=== PATIENT | female | born 1990 | race Caucasian/White ===

== ENCOUNTER 2017-01-26 23:10 | Observation (INO) | payer OTHER ==
[~2017-01-26] VITALS: Ht 167.6 cm; Wt 96.6 kg
[~2017-01-26 23:10] MED LIST: BACL10TA PO; BUTA1CAP39 PO; CEPH-512 PO; IBUP800T28 PO; MELO-259 PO; RANI75TA30 PO; ROB500 PO
[2017-01-26 23:13] VITALS: BP 124/79; PULSE 88; RESP 22; O2SAT 98
--- NOTE | 2017-01-27 00:02 | ED.REPORT ---
HPI-GI Bleed Date of Service Jan 27, 2017 ED Provider: Mart Hathaway MD A 26 year old 8-9 week female with a history of miscarriages, presents to the ED complaining of hematemesis onset last night and a severe headache onset this morning. She reports vomiting at least 3 times today, vomit being darker than last night, and intermittently without blood. She reports being unable to keep any liquid or solid food down The patient reports having vomit without blood for the last week, with vomiting occurring throughout the entirety of each day. She is not sure if she has had a fever recently, but does report hot flashes and chills. She denies any diarrhea. This is her 6th and has had an in the past. She currently takes vitamin B6 to treat her nausea and sleeping pills prescribed by her doctor. She has not taken any ibuprofen to treat current symptoms. The patient has had two knee surgeries, a cholecystectomy, has had her wisdom teeth removed, and had to get stitches in her 3rd after the delivery of her daughter. She does not smoke cigarettes but does smoke marijuana. She has not consumed alcohol since she has been . . Nursing Notes Stated Complaint: VOMITING BLOOD/ Chief Complaint: Female Abdominal Pain Nursing Notes Reviewed: Yes (Jimdo, Talent Flush not reconciled) Allergies: Coded Allergies: No Known Allergies (Verified , 01/26/17) Scheduled Baclofen (Baclofen) 10 Mg Tablet 10 MG PO QID Cephalexin (Keflex) 500 Mg Capsule 500 MG PO QID Meloxicam (Meloxicam) 7.5 Mg Tablet 7.5 MG PO DAILY Methocarbamol (Methocarbamol) 500 Mg Tablet 1,000 MG PO TID Ranitidine HCl (Acid Rivet Spinner) 75 Mg Tablet 75 MG PO DAILY Scheduled PRN Butalbital/Acetamin/Caff 50-300-40 mg (Fioricet 50-300-40 mg) 1 Each Capsule 1 CAPSULE PO Q4H PRN PRN Headache Ibuprofen (Ibuprofen) 800 Mg Tablet 800 MG PO TID PRN PRN For Pain Ondansetron ODT (Ondansetron ODT) 8 Mg Tab.rapdis 8 MG PO Q4H PRN PRN For Nausea Promethazine (Promethazine) 25 Mg Tablet 25 MG PO Q4H PRN PRN For Nausea General Time Seen by Provider: 00:01 Chief Complaint Chief Complaint: Other (Hematemesis) Hx Obtained From: Patient, Spouse Arrived By: Walk-in Onset Occurred: Yesterday (last night) Symptom Duration: Intermittent Recent Healthcare: Recent doctor visit Similar Sx Previous: No Past Medical History Past Medical History Miscarriages Reports: Migraines Past Surgical History knee surgery x2 Reports: Cholecystectomy Family History Noncontributory Smoking History Former Smoker Social History Alcohol Use: "Social" (Has not consumed alcohol since beginning of .) Drug Use: THC Other Social History: Good social support, Local resident Ambulatory Status Independent Review of Systems Review of Systems Note: Hematemesis. Cannot hold fluid or solid food down. Hot flashes. Constitutional: Reports: Chills GI: Reports: Nausea, Vomiting, Denies: Diarrhea Neurologic: Reports: Headache Complete sys rev & neg: except as marked. Physical Exam Initial Vital Signs Vital Signs (First) Date Time Temp Pulse Resp B/P Pulse Ox O2 Delivery O2 Flow Rate FiO2 01/26/17 23:13 35.9 88 22 124/79 98 Room Air Initial VS: Reviewed, Vital signs normal General/Constitutional: Awake, Alert Patient is fatigued and frustrated, appears dehyrated, but does not appear toxic. Does not appear in withdrawal. Respiratory / Chest: Atraumatic, Breath sounds NL, Breath sounds = bilat, No respiratory distress, No rales, No rhonchi Cardiovascular: Heart rate NL, Regular rhythm, Heart sounds NL, No gallop, No murmurs, No rubs Not tachycardic. No edema. Abdomen: Atraumatic, Soft, Non-tender, No guarding, No rebound Rectum / Perineum: Patient refused exam Head / Eyes: Atraumatic, Normocephalic, PERRL, EOMI ENT: Atraumatic, Pharynx NL Skin Skin: Warm, Dry Do not appreciate any track coats. Neurologic: Oriented X3, Speech NL Neck: Atraumatic, Full range of motion Back: Atraumatic, Full range of motion Upper Extremity / MS: Atraumatic, Full range of motion Wrist / Hand: Atraumatic, Full range of motion Lower Extremity / Pelvis / MS: Atraumatic, Full range of motion Ankle / Foot: Atraumatic, Full range of motion Interpretation & Diagnostics Lab Results Interpretation Result Diagram: 01/26/17 0018 01/26/17 0000 Test 01/26/17 00:00 01/26/17 00:18 01/26/17 23:50 01/27/17 00:18 Prothrombin Time 10.3sec (8.1-12.5) Prothromb Time International Ratio 0.96ratio Sodium Level 136mEq/L (134-144) Potassium Level 3.2mEq/L (3.5-5.2) Chloride Level 97mEq/L (97-108) Carbon Dioxide Level 18mmol/L (18-29) Blood Urea Nitrogen 5mg/dL (6-20) Creatinine 0.40mg/dL (0.57-1.00) Estimat Glomerular Filtration Rate 0mL/min (>59) Glucose Level 101mg/dL (60-99) Calcium Level 9.6mg/dL (8.5-10.1) Total Bilirubin 1.5mg/dL (0.0-1.2) Aspartate Amino Transf (AST/SGOT) 18U/L (0-50) Alanine Aminotransferase (ALT/SGPT) 18U/L (0-32) Alkaline Phosphatase 61U/L (25-150) Total Protein 7.7g/dL (6.4-8.4) Albumin 4.5g/dL (3.4-5.0) White Blood Count 13.9th/mm3 (3.8-10.1) Red Blood Count 5.01mil/mm3 (3.90-5.20) Hemoglobin 14.4g/dL (12.0-15.6) Hematocrit 41.2% (35.0-46.0) Mean Corpuscular Volume 82.2fL (81-100) Mean Corpuscular Hemoglobin 28.7pg (27.0-35.0) Mean Corpuscular Hemoglobin Concent 35.0% (32.0-37.0) Red Cell Distribution Width 13.7% (12.3-15.4) Platelet Count 286bil/L (150-400) Neutrophils (%) (Auto) 75.7% (40-74) Lymphocytes (%) (Auto) 17.2% (14-46) Monocytes (%) (Auto) 6.4% (4-12) Eosinophils (%) (Auto) 0.3% (0-5) Basophils (%) (Auto) 0.1% (0-3) Hold Moreno Top Tube Received (Received) HCG Beta Subunit [id number] Test 01/27/17 01:50 Urine Color Yellow (YELLOW) Urine Appearance Cloudy (CLEAR,HAZY) Urine pH 5.5 (5.0-8.0) Urine Specific [place] 1.015 (1.003-1.035) Urine Protein Negativemg/dL (NEG,TRACE) Urine Glucose (UA) >1000mg/dL (NEGATIVE) Urine Ketones >80mg/dL (NEGATIVE) Urine Occult Blood Small (NEGATIVE) Urine Nitrite Negative (NEGATIVE) Urine Bilirubin Negative (NEGATIVE) Urine Urobilinogen Normalmg/dL (NORMAL) Urine Leukocyte Esterase Small (NEGATIVE) Urine RBC 3-10/hpf (0-2) Urine WBC 11-50/hpf (0-5) Urine Epithelial Cells Many/hpf (NONE-MOD) Urine Crystals None seen (NONE SEEN) Urine Bacteria Many/hpf (NONE-FEW) Urine Hyaline Casts None/lpf (NONE) Urine Granular Casts None seen (NONE SEEN) Urine Waxy Casts None seen (NONE SEEN) Urine Red Blood Cell Casts None seen (NONE SEEN) Urine White Blood Cell Casts None seen (NONE SEEN) Urine Mucus Present (None Seen) Urine Trichomonas None seen (NONE SEEN) Urine Yeast None (NONE SEEN) Urinalysis Comment None Urine Culture Reflexed Indicated Lab Results Interpretation: CBC mild leukocytosis, normal hematocrit CMP all hypokalemia consistent with vomiting HCG in the expected range UA positive for markers of infection U tox positive for marijuana only ECG Interpretation ECG Interpretation: Sinus rhythm. Rate is 70. Atrial premature complexes. 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 She has been vomiting all week long, said recurrent retching, and last night and today has had several episodes which she has vomited up some blood-intermittently, given a classic history of a Ilsa-Jimenez tear. She continues to have ongoing nausea and has had problems previously with hyperemesis. She is taking vitamin B6, but now has been unable to keep anything-liquids are otherwise down for the past 2 days. She is increasingly weak so came to the department. She denies fevers chills, local abdominal pain or dysuria. She denies any vaginal bleeding. She has no additional complaints. Exam she appears very fatigued, and is clinically dehydrated. Her abdomen however soft and nontender. No rashes or track coats-she reports no substance use beyond TC, althought EMR records suggested substance use in the past. Patient is aggressively hydrated with several liters of D5 normal saline. Blood work reveals a normal hematocrit, and again all features clinically, [id number] suggest a Ilsa-Jimenez tear and are classic for this condition, which does not require GI consult, or even admission. Treatment is management of the nausea causing the underlying retching. The patient received ondansetron, and promethazine with Benadryl, and is improved-but still symptomatic and nausea does not feel comfortable with that with discharge. Her UA is notable for multiple markers were infection, so an empiric dose of ceftriaxone was given. Patient was also given a dose of the PPI and H2 nena, which can sometimes be helpful. Patient has been monitored in the department and while she has ongoing nausea and does not think she can take by mouth well-she has had no vomiting, no hematemesis. Patient's appropriate candidate for admission to the on-call cleaning porter, given the patient's regular provider's [place] she is going to the unassigned provider. Case is discussed with Dr. Yun accepted the admission, and requests that the patient receive hydration with normal saline containing multivitamins at 250 mL an hour 4 hours, and then subsequent to this at 125 mL an hour. This is not an order this available to me in [facility], so does been written in the physician orders, and faxed to pharmacy. Additially , ondansetron every 4 hours, and promethazine 25 mg every 4 hours be continued for nausea control. Patient is admitted in improved condition. Source of Hx: Old records Re-Evaluation/Progress #1: Time of Eval: 01:53 Re-Evaluation/Progress Note: Rechecked patient who is sleeping comftorably. Re-Evaluation/Progress #2: Time of Eval: 02:15 Patient Status: Condition improved Evaluation: Abdomen soft/non-tender Re-Evaluation/Progress Note: Patient rechecked. Patient is improved, but does still have some nausea, and does not feel comfortable with discharge. Requests admit. Updated on lab results and plan Consultation : Referral / Consult Name: Cecelia Yun MD Call Returned at: 02:19 Closet Organizer: Accepts admit Note: Discussed patient case with Dr. Yun who accepts patient admit. Differential Diagnosis: Positive: Ilsa-Jimenez syndrome, Negative: Esophageal varices, Foreign body intestine, Foreign body rectum, Gastroenteritis, Pilonidal abscess, Rectal bleeding, Ulcerative colitis Counseled Regarding: Diagnosis, Lab results, Need for admission Discharge & Departure Impression: Primary Impression: Hyperemesis gravidarum Additional Impressions: Ilsa-Jimenez tear UTI (urinary tract infection) Urinary tract infection type: acute cystitis Hematuria presence: without hematuria Qualified Code: N30.00 - Acute cystitis without hematuria Intrauterine Disposition: ADMITTED TO HOSPITAL Discharge Condition All VS Reviewed: Yes Condition: Improved Additional Instructions: 1. Your blood tests were normal. (No findings of significant blood loss or anemia). The type of bleeding you describe after recurrent vomiting and retching is called a Ilsa -Jimenez tear from irritation of the espophagus from vomiting. Although scary in terms of symptoms, this should heal with time and management of the nausea. 2. Continue the pyridoxine (vitamin B6) 3. Take ondansetron 8mg - let dissolve under tongue - up to every 4 hours if needed for nausea 4. Or, If needed, take promethazine 25mg up to every 4 hours for nausea. (Note: This medication can cause some mild drowsiness) 5. Followup with your SILVERWARE SUPERVISOR in [place] this week 6. Return again if new or worsening symptoms. Referrals: Manisha Barrera (PCP) Gary Attestation Portions of this note were transcribed by Zion Viveros. I, Dr. Hathaway personally performed the history, physical exam and medical decision-making; I reviewed and confirmed the accuracy of the information in the transcribed note. Signed by: Gary Renteria, 01/27/2017and 0248. copies to: Manisha Barrera Matthew F MD Jan 27, 2017 00:02 Zion iVveros Jan 27, 2017 00:16
[2017-01-27] MEDS ORDERED: Promethazine Inj 25 MG in Dextrose 5%-Pha MIX 50 ML IV ONE (00:20)
[2017-01-27] MEDS ORDERED: Dextrose 5% 0.9% NaCl 1,000 ML IV ONE ×2 (00:20)
[2017-01-27] MEDS ORDERED: Famotidine Inj 20 MG in IV Premix 1 EACH IV ONE (00:20)
[2017-01-27] MEDS ORDERED: Pantoprazole 4 mg/mL 10 mL Inj IVPUSH ONE (00:20)
[2017-01-27 00:25] LABS: BASOPHILS % (AUTO) 0.1 % (0-3); EOSINOPHILS % (AUTO) 0.3 % (0-5); MONOCYTES % (AUTO) 6.4 % (4-12); Mean Corpuscular Hemoglobin 28.7 pg (27.0-35.0); Mean Corpuscular Volume 82.2 fL (81-100); NEUTROPHILS % (AUTO) 75.7 % (40-74); Platelet Count 286 bil/L (150-400)
[2017-01-27] MEDS ORDERED: ONDA8TAB10 PO (01:59)
[2017-01-27] MEDS ORDERED: PROM25TA14 PO (01:59)
[2017-01-27] MEDS ORDERED: _Ondansetron ODT 4 mg Tablet PO PRN (02:00)
[2017-01-27 02:02] LABS: APPEARANCE,URINE CLOUDY (CLEAR,HAZY); COLOR,URINE YELLOW (YELLOW); OCCULT BLOOD,URINE SMALL (NEGATIVE); PH,URINE 5.5 (5.0-8.0); UROBILINOGEN,URINE NORMAL (NORMAL)
[2017-01-27] MEDS ORDERED: cefTRIAXone Inj 2,000 MG in Dextrose 5% Minibag Plus 50 ML IV ONE (02:10)
[2017-01-27] MEDS ORDERED: Promethazine Inj 25 MG in Dextrose 5%-Pha MIX 50 ML IV PRN (02:20)
[2017-01-27] MEDS ORDERED: Alum-Mag Hydrox-Simeth 30 mL Suspension PO PRN (02:20)
[2017-01-27] MEDS ORDERED: MULTIVITAMINS IV ONE (02:55)
[2017-01-27] MEDS ORDERED: SODIUM CHLORIDE 0.9% IV ONE (02:55)
[2017-01-27 03:30] VITALS: BP 107/71; PULSE 74; RESP 18; O2SAT 98
--- NOTE | 2017-01-27 03:39 | NUR ---
Admit Note Pt arrived to room 3021 at around 0320. Alert and oriented. Able to transfer independently. No vomiting witness yet. Abx running, will start ns with vitamins there after. Pt is asleep and appears comfortable.
[2017-01-27] MEDS ORDERED: Potassium Chloride Inj 20 MEQ in Dextrose 5% 250 ML IV ONE (06:00)
--- NOTE | 2017-01-27 06:18 | NUR ---
No tele Verified with OB doc that pt does NOT need to be on tele even though will be receiving one time IV replacement of potassium.
[2017-01-27] MEDS: Amoxicillin-Clav 500-125 mg Tablet PO SCH ×2 (06:28→17:11)
--- NOTE | 2017-01-27 06:59 | HP ---
[address] [address] HISTORY AND PHYSICAL PATIENT: NACHO VILLAGRAN : 1990 MR#: [id number] ADMIT: 01/27/2017 JOB ID: [id number] ADMISSION DIAGNOSIS: Hyperemesis gravidarum. HISTORY OF PRESENT ILLNESS: The patient is a 26-year-old, 6, para 1-0-4-1, LMP in November 2016. care with Dr. Netta Hough in [place], with estimated due date September 03, 2017. The patient is a poor historian. Started to have nausea and vomiting for the last week, worsening this evening. Presented to the ED with severe nausea and vomiting. Admitted for hyperemesis gravidarum. PAST OBSTETRICAL HISTORY: One full-term ended with spontaneous vaginal delivery. Two spontaneous abortions around 16 weeks when she was a teenager. Elective termination of at 12 weeks with suction D and C in 2012. Spontaneous around 5 weeks in November 2016, and the current . PAST GYNECOLOGIC HISTORY: A prior history of abnormal Pap smear. Last Pap was normal. History of herpes simplex virus infection. Cannot recall the time of the last outbreak. PAST MEDICAL HISTORY: Questionable Ilsa-Jimenez tear as reported by the ED physician due to blood-streaked vomiting in the ED. ALLERGIES: No known drug allergies. PAST SURGICAL HISTORY: Knee surgeries x2m, cholecystectomy, wisdom teeth extraction, plus suction D and C in 2012 for elective termination of . MEDICATIONS: vitamins. SOCIAL HISTORY: Denied any alcohol consumption. Denied any cigarette smoking. Used to smoke marijuana daily, and she mentioned that she stopped in the last week or so. LABORATORIES: In the ED, H and H is 14.4 and 41.2, platelets are 286, white blood count is 13.9. Beta hCG levels are 110,525. UA is positive. Calcium 9.6. AST 18, ALT is 18. Sodium is 136, potassium 3.2, low level. Chloride 97. Carbon dioxide 18, BUN is 5, creatinine is 0.4, glucose is 101. EXAMINATION: The patient is alert, oriented x3. Vital signs are 36.8 degrees centigrade for temperature, pulse is 74, respirations are 18, blood pressure is 107/71, pulse ox is 98% on room air. Heart is regular rate and rhythm. Positive S1, S2. Lungs: Clear to auscultation bilaterally. Abdomen: Gravid uterus. Nondistended abdomen. Positive bowel sounds. Lower extremities: No calf tenderness appreciated bilaterally. ASSESSMENT AND PLAN: The patient is a 26-year-old, 6, para 1-0-4-1, with hyperemesis gravidarum. 1. IV hydration, antiemetics. 2. Urinary tract infection. She received one dose of ceftriaxone IV. Will start Augmentin, and evaluate if the patient tolerates p.o.medications. 3. Hypokalemia. Potassium chloride 20 mEq ordered for IV infusion. 4. Evaluate metabolic panel after potassium replacement. 5. OB ultrasound ordered for viability and estimated due date. All the above discussed in details with the patient, who agreed to the plan. MTDD
[2017-01-27] MEDS ORDERED: 0.9% Sodium Chloride 250 ML ONE (08:04)
--- NOTE | 2017-01-27 08:44 | DRSVH ---
PROCEDURE: US OB<14 WKS INDICATIONS: 26 year-old female. Assess viability and dates. OUTSIDE/PRIOR DATING DATA: Last menstrual period (LMP): November 23, 2016. LMP-based estimated date of delivery (CHILO): August 30, 2017. First dating scan (date and location): January 25, 2017 at [facility]. Estimated date of delivery (CHILO) from first dating scan: September 05, 2017. TECHNIQUE: Real-time scanning was performed of the fetus and maternal pelvic organs, with image documentation. COMPARISON: [facility], US, OB COMPLETE 14WKS OR MORE, 01/25/2017, 15:45. FINDINGS: Embryo: Single living intrauterine gestation demonstrates normal heart rate of 171 beats per mi nute. Calhoun-rump length of 1.9 cm corresponds with 8 weeks 3 days estimated gestational age. Normal y olk sac is present. Amniotic fluid is qualitatively normal in amount. No oleg-gestational sac bleeds. Measurement variability in dating: +/- 4 weeks by LMP, +/- 7 days by mean sac diameter (use before 6 weeks gestation if crown-rump length not able to be measured), +/- 5 days by crown-rump length (6-12 weeks gestation). Maternal organs: Ovaries are normal in size. IMPRESSION: Single living intrauterine gestation demonstrates appropriate interval growth. Dictated by: Alfonzo Haskins M.D. on 01/27/2017 at 8:39 Approved by: Alfonzo Haskins M.D. on 01/27/2017 at 8:43
[2017-01-27] MEDS ORDERED: Ondansetron 8 mg ODT Tablet PO PRN (10:10)
[2017-01-27] MEDS ORDERED: KCl 40 mEq/100 mL (CENTRAL) 40 MEQ in IV Premix 1 EACH IV ONE (10:10)
[2017-01-27 10:15] VITALS: BP 102/66; PULSE 78; RESP 18; O2SAT 90
[2017-01-27] MEDS ORDERED: KCl 40 mEq/D5W 500 mL 40 MEQ in IV Premix 1 EACH IV ONE (10:30)
[2017-01-27] MEDS ORDERED: Acetaminophen IV 1,000 MG in IV Premix 1 EACH IV PRN (11:05)
--- NOTE | 2017-01-27 11:52 | NUR ---
MADRID/Nausea: Complaint of MADRID 06/03 on pain scale. notified, orders received for IV Tylenol. IV Tylenol administered. Will follow. Denies nausea at this time. Addendum: 01/27/17 at 1827 by LAUREN NAVA RN On reassessment, patient states MADRID 10 on pain scale.
[2017-01-27 12:48] VITALS: BP 98/59; PULSE 84; RESP 16; O2SAT 97
--- NOTE | 2017-01-27 16:31 | NUR ---
Social Work: Screening Data: Pt is a 26 y/o female admitted for hyperemesis gravidarum/wily-caldwell TEA. Pt's PCP is Dr parson, pt's insurance is [employer]. No d/c planning needs anticipated at this time. BIOMASS POWER PLANT MANAGER will continue to follow if needs arise. Assessment: Pt who is independent at baseline. Plan: Pt will d/c home via POV when medically stable. No d/c planning needs anticipated at this time. BIOMASS POWER PLANT MANAGER will continue to follow if needs arise. OH Haro
[2017-01-27] MEDS: Pantoprazole 40 mg ER24 Tablet PO SCH (17:11)
[2017-01-27] MEDS: Ondansetron 2 mg/mL 2 mL Inj IVPUSH PRN (21:22)
[2017-01-27 21:58] VITALS: BP 105/69; PULSE 75; RESP 16; O2SAT 98
--- NOTE | 2017-01-27 22:11 | NUR ---
Nausea: Pt medicated for nausea at HS. States nausea increases in the evening. Taking clear liquid, also tolerated a sherbet earlier per pt.
[2017-01-28] MEDS: MULTIVITAMINS IV SCH ×2 (00:16→08:07)
[2017-01-28] MEDS: SODIUM CHLORIDE 0.9% IV SCH ×2 (00:16→08:07)
[2017-01-28 04:42] VITALS: BP 110/73; PULSE 68; RESP 16; O2SAT 100
[2017-01-28] MEDS: Amoxicillin-Clav 500-125 mg Tablet PO SCH (06:36)
[2017-01-28 07:12] LABS: BASOPHILS % (AUTO) 0.3 % (0-3); MONOCYTES % (AUTO) 6.2 % (4-12); Mean Corpuscular Hemoglobin 28.9 pg (27.0-35.0); Mean Corpuscular Volume 85.5 fL (81-100); NEUTROPHILS % (AUTO) 67.3 % (40-74); Platelet Count 205 bil/L (150-400)
[2017-01-28] MEDS: Pantoprazole 40 mg ER24 Tablet PO SCH (07:30)
[2017-01-28] MEDS: Ondansetron 2 mg/mL 2 mL Inj IVPUSH PRN (08:06)
--- NOTE | 2017-01-28 08:45 | NUR ---
Nausea Pt reports "feeling nauseated", requesting IV zofran. IV Zofran given as requested, pt able to tolerate Jello and sherbet. Encouraged to contact staff for needs, pt reports "I just want to sleep right now". Frequent rounding in place, will continue to monitor.
[2017-01-28] MEDS ORDERED: Potassium Chloride Inj 20 MEQ in Dextrose 5% 250 ML IV ONE (11:45)
--- NOTE | 2017-01-28 11:54 | PCM.DIOB ---
Obstetrical Disch Instruction Date of Service: Jan 28, 2017 Dates of Hospitalization Date of Hospital Admission Jan 27, 2017 at 02:39 Providers Admitting Physician: Cecelia Yun MD Primary Care Physician: Manisha Barrera Attending Physician: Cecelia Yun MD Discharge Diagnosis Discharge Diagnosis HYPEREMESIS GRAVIDARUM, 8WKS GESTATION. Problems: Diet Discharge Diet: No restrictions Activity Discharge Activity-General: No lifting >10 pounds for 4-6 weeks Dressing and Incisional Care Hygiene: May shower Additional Instructions Discharge Instructions FOLLOW UP WITH YOUR RELIEF MAN IN [place] THIS WEEK. Please come back for severe vomiting episodes. Eat foods that are rich in potassium. Follow Up Plan Call your provider for: Fever or Chills, Other (excessive nausea and vomiting.) Cecelia Yun MD Jan 28, 2017 11:54
[2017-01-28] MEDS ORDERED: CEPH-512 PO (11:57)
[2017-01-28] MEDS ORDERED: PROM25TA14 PO (11:57)
[2017-01-28] MEDS ORDERED: ONDA4TAB12 PO (11:57)
--- NOTE | 2017-01-28 15:10 | NUR ---
Social Work-discharge: data:EMR Reviewed. Pt is on day 1 of hospitalization for hyperemesis per H&P. Pt is medically stable for discharge today. Pt resides at home and had supportive mother. per RN notes, pt has been up independent in her room. No discharge needs identified. All updated and agreeable to plan. Assessment:pt who is independent at baseline. Plan:Pt to discharge home today via POV.No discharge needs identified. All updated and agreeable to plan. OH Mason
--- NOTE | 2017-01-28 16:05 | NUR ---
Discharge \ Pt discharged at this time. All belongings gathered and returned to pt. Hard copy of new scripts given to fill. IV D/Cd intact. VSS, no complains of increased pain, nausea or vomiting. Discharge packet printed and reviewed with pt. Pt declined offer of wheelchair, steady gait. Pt escorted from [facility] by FILL PLANT OPERATOR to be transported home in private vehicle driven by mother.
--- NOTE | 2017-01-28 23:07 | DIS ---
[address] [address] DISCHARGE SUMMARY PATIENT: NACHO VILLAGRAN : 1990 MR#: [id number] ADMIT: 01/27/2017 JOB ID: [id number] DIS: 01/28/2017 Admission Diagnosis: Admitted from the emergency department for: 1- hyperemesis gravidarum, 2- Electrolyte imbalance, mainly hypokalemia, Discharged on January 28, 2017. DISCHARGE DIAGNOSES: 6, para 1-0-4-1 at eight weeks and three days gestational age by eight week ultrasound with confirmed CHILO of September 05, 2017, with hyperemesis gravidarum that resolved. For further details, please refer to the fully dictated notes. The patient improved clinically. She can keep clear diet in without any nausea or vomiting in the last 12-24 hours. Ins and outs for the last eight hour shift is 1539 cc in, 675 cc out. Vital signs are 37 for temperature, pulse is 68, respirations are 16. Blood pressure is 110/73. Pulse ox 100% on room air. Heart is regular rate and rhythm. Positive S1, S2. Lungs: Clear to auscultation bilaterally. Abdomen: Nontender and nondistended. Positive bowel sounds. Lower extremities: No calf tenderness appreciated bilaterally. LABORATORIES: H and H is 12.2 and 36.1, white blood count 10.5, and platelets of 205. These are a.m. labs. Sodium of 134, potassium 3.4, low level, potassium chloride ordered at 20 mEq infusion x1. Chloride 104, carbon dioxide 16. BUN is 2, creatinine is 0.35, glucose is 95. Ultrasound on January 27 showed eight weeks three days gestational age baby. Visualized crown-rump length, normal yolk sac, with due date of September 05, 2017, and positive heartbeat of 171 beats per minute. Patient reassured. DISCHARGE PLAN: The patient will be discharged home in a stable condition. Will follow up with her marine engineering technicians in [place] this week. Instructed to call back for any episodes of severe nausea or vomiting again. Instructed to call for any vaginal bleeding, severe abdominal pain, fever, chills, or any other concerning symptoms. DISCHARGE MEDICATIONS: 1- Phenergan 25 mg p.o. every 4 hours as needed for nausea and vomiting, 2-ondansetron 4 mg oral dissolving tablets every 4 hours as needed for nausea and vomiting, 3- vitamins once daily, 4- Keflex 500 mg every 6 hours for five days for UTI. All the above discussed in details with the patient, who agreed to the plan. MTDD
== END 2017-01-28 16:10 | disposition home or self-care (01) ==
LOC: SED 23:10 → MPC 01-27 02:39
PROVIDERS: ADMIT Obstetrics & Gynecology; ATTEND Obstetrics & Gynecology
DX: O21.1 Hyperemesis gravidarum with metabolic disturbance (principal); Z3A.08 8 weeks gestation of pregnancy; O99.321 Drug use complicating pregnancy, first trimester; F12.90 Cannabis use, unspecified, uncomplicated; N39.0 Urinary tract infection, site not specified; G43.909 Migraine, unspecified, not intractable, without status migrainosus
CPT/HCPCS: 36415; 76801; 80048; 80053; 81000; 84702; 85025; 85610; 86850; 87086; 87088; 93005; 96365; 96374; 96375; 96376; 99285; G0378; J0131; J0696; J1200; J2405; J2550; J3480; J3490; J7030; J7042; J7050

== ENCOUNTER 2017-02-22 22:47 | Observation (INO) | payer OTHER ==
[~2017-02-22] VITALS: Ht 167.6 cm; Wt 98.6 kg
[~2017-02-22 22:47] MED LIST changes: +ONDA4TAB12 PO; +PROM25TA14 PO
[2017-02-22 22:50] VITALS: BP 130/81; PULSE 108; RESP 24; O2SAT 98
[2017-02-22 23:30] LABS: BASOPHILS % (AUTO) 0.3 % (0-3); EOSINOPHILS % (AUTO) 1.1 % (0-5); MONOCYTES % (AUTO) 6.3 % (4-12); Mean Corpuscular Hemoglobin 29.1 pg (27.0-35.0); Mean Corpuscular Volume 82.9 fL (81-100); Platelet Count 270 bil/L (150-400)
[2017-02-22 23:58] LABS: Magnesium 1.7 mg/dL (1.6-2.6)
[2017-02-23] VITALS (9 sets, daily range): BP systolic 100–126; BP diastolic 56–85; PULSE 80–108; RESP 18; O2SAT 97–99
--- NOTE | 2017-02-23 01:05 | ED.REPORT ---
HPI- Female Date of Service Feb 23, 2017 ED Provider: Dr. Maxwell Pt is a healthy 12 week 26 y/o female presenting to the ED c/o nausea and vomiting onset today. She saw her doctor earlier today and then began vomiting and a forceful emesis brought about some blood. There has been no further bleeding but she remains nauseous with an associated mild headache. Nursing Notes Stated Complaint: VOMITING BLOOD, 12 WKS Chief Complaint: Female Abdominal Pain Nursing Notes Reviewed: Yes Allergies: Coded Allergies: No Known Allergies (Verified , 02/22/17) Scheduled Baclofen (Baclofen) 10 Mg Tablet 10 MG PO QID Cephalexin (Keflex) 500 Mg Capsule 500 MG PO Q6H Meloxicam (Meloxicam) 7.5 Mg Tablet 7.5 MG PO DAILY Methocarbamol (Methocarbamol) 500 Mg Tablet 1,000 MG PO TID Ondansetron ODT (Ondansetron ODT) 4 Mg Tab.rapdis 4 MG PO Q4H Ranitidine HCl (Acid Pharmacy Operations Specialist) 75 Mg Tablet 75 MG PO DAILY Scheduled PRN Butalbital/Acetamin/Caff 50-300-40 mg (Fioricet 50-300-40 mg) 1 Each Capsule 1 CAPSULE PO Q4H PRN PRN Headache Ibuprofen (Ibuprofen) 800 Mg Tablet 800 MG PO TID PRN PRN For Pain Promethazine (Promethazine) 25 Mg Tablet 25 MG PO Q4H PRN PRN For Nausea General Time Seen by MD: 01:04 Chief Complaint Other (Vomiting) Hx Obtained From: Patient Arrived By: Walk-in Sudden in Onset?: No Onset Occurred: 1 - 4 hours ago Symptom Duration: Since onset Severity: Current: No pain currently Severity: Maximum: No pain Recent Healthcare: Recent doctor visit Past Medical History Past Medical History Miscarriages Reports: Migraines Past Surgical History knee surgery x2 Reports: Cholecystectomy Family History Noncontributory Smoking History Former Smoker Social History Alcohol Use: "Social" Drug Use: THC Other Social History: Good social support, Local resident Ambulatory Status Independent Review of Systems Constitutional: Denies: Chills, Fever GI: Reports: Hematemesis, Nausea, Vomiting, Denies: Abdominal pain Neurologic: Reports: Headache, Denies: Dizziness, Lightheaded Complete sys rev & neg: except as marked. Physical Exam Initial Vital Signs Vital Signs (First) Date Time Temp Pulse Resp B/P Pulse Ox O2 Delivery O2 Flow Rate FiO2 02/22/17 22:50 36.2 108 24 130/81 98 Room Air Initial VS: Reviewed Head / Eyes: Atraumatic, Normocephalic, PERRL ENT: Mucous membranes moist, Conjunctiva normal, No scleral icterus Neck: Supple, Full range of motion Respiratory: Breath sounds normal, Clear to auscultation, No respiratory distress Cardiovascular: Regular rate & rhythm, Heart sounds normal, Intact distal pulses Abdomen / GI: Soft, Non-tender, No guarding, No rebound, No distention Extremities: Vascular intact, Neuro intact, No swelling, No tenderness Skin: Warm, Dry, No cyanosis Neurologic: Alert, Oriented, Nonfocal Psychiatric: Mood/affect normal, Behavior normal, Normal thought content Female Genitourinary: Exam deferred General/Constitutional: Awake, Alert, No acute distress, Well appearing, Cooperative, Not toxic appearing Interpretation & Diagnostics Lab Results Interpretation Result Diagram: 02/22/17231902/22/172319 Test 02/22/17 23:20 White Blood Count 14.0th/mm3 (3.8-10.1) Red Blood Count 4.92mil/mm3 (3.90-5.20) Hemoglobin 14.3g/dL (12.0-15.6) Hematocrit 40.8% (35.0-46.0) Mean Corpuscular Volume 82.9fL (81-100) Mean Corpuscular Hemoglobin 29.1pg (27.0-35.0) Mean Corpuscular Hemoglobin Concent 35.0% (32.0-37.0) Red Cell Distribution Width 14.0% (12.3-15.4) Platelet Count 270bil/L (150-400) Neutrophils (%) (Auto) 76.0% (40-74) Lymphocytes (%) (Auto) 15.8% (14-46) Monocytes (%) (Auto) 6.3% (4-12) Eosinophils (%) (Auto) 1.1% (0-5) Basophils (%) (Auto) 0.3% (0-3) Sodium Level 137mEq/L (134-144) Potassium Level 3.6mEq/L (3.5-5.2) Chloride Level 99mEq/L (97-108) Carbon Dioxide Level 17mmol/L (18-29) Blood Urea Nitrogen 4mg/dL (6-20) Creatinine 0.41mg/dL (0.57-1.00) Estimat Glomerular Filtration Rate 267mL/min (>59) Glucose Level 97mg/dL (60-99) Calcium Level 9.7mg/dL (8.5-10.1) Magnesium Level 1.7mg/dL (1.6-2.6) Total Bilirubin 0.8mg/dL (0.0-1.2) Aspartate Amino Transf (AST/SGOT) 25U/L (0-50) Alanine Aminotransferase (ALT/SGPT) 16U/L (0-32) Alkaline Phosphatase 76U/L (25-150) Total Protein 8.2g/dL (6.4-8.4) Albumin 4.2g/dL (3.4-5.0) Lipase 25U/L (13-60) Hold Moreno Top Tube Received (Received) Re-Eval/Medical Decision Med Decision/Clinical Course 26-year-old female 12 weeks with hyperemesis and what sounds like a Ilsa-Jimenez tear. She has a very benign physical examination with a completely soft and nontender abdomen. She does look a little bit dry. When he checked some labs, hydrate her and treat with proton pump inhibitor as well as antiemetics. Serial H&H's will be ordered. Care endorsed Dr. Gandhi at the conclusion of my shift. Counseled Regarding: Diagnosis, Lab results, Need for follow-up, When/why to return to ED Discharge & Departure Shift Change Sign-Out Patient Care Transferred: Yes Discussed Complaint(s): Yes Laboratory Evaluation: Ordered, not yet done Response to Therapy: Improved Impression: Primary Impression: Hyperemesis gravidarum Additional Impression: Ilsa-Jimenez tear Disposition: Home Discharge Condition All VS Reviewed: Yes Condition: Stable Referrals: Manisha Barrera (PCP) Gary Attestation Portions of this note were transcribed by Jeffrey Starkey. I, Dr. Maxwell personally performed the history, physical exam and medical decision-making; I reviewed and confirmed the accuracy of the information in the transcribed note. Signed by Gary Pereyra, 02/23/17 - 0043 copies to: Manisha Barrera Todd P DO Feb 23, 2017 01:05 JEFFREY STARKEY Feb 23, 2017 01:13
[2017-02-23] MEDS ORDERED: 0.9% Sodium Chloride 1,000 ML IV SCH (01:10)
[2017-02-23] MEDS ORDERED: Pantoprazole 4 mg/mL 10 mL Inj IVPUSH ONE ×2 (01:10→05:30)
[2017-02-23] MEDS ORDERED: Ondansetron 2 mg/mL 2 mL Inj IVPUSH PRN ×2 (01:10→06:05)
[2017-02-23] MEDS ORDERED: Acetaminophen IV 1,000 MG in IV Premix 1 EACH IV ONE (02:05)
[2017-02-23] MEDS ORDERED: Dexamethasone Inj 10 MG in 0.9% Sodium Chloride-Pha MIX 50 ML IV ONE (02:05)
[2017-02-23] MEDS ORDERED: 0.9% Sodium Chloride 1,000 ML IV ONE (03:00)
[2017-02-23 03:39] LABS: Mean Corpuscular Hemoglobin 28.5 pg (27.0-35.0); Mean Corpuscular Volume 83.8 fL (81-100)
[2017-02-23] MEDS ORDERED: Pantoprazole Inj 80 MG in 0.9% Sodium Chloride-Pha MIX 80 ML IVPUSH SCH (05:35)
[2017-02-23] MEDS ORDERED: Pantoprazole Inj 80 MG in 0.9% Sodium Chloride 80 ML IV SCH (06:05)
[2017-02-23] MEDS ORDERED: Alum-Mag Hydrox-Simeth 30 mL Suspension PO PRN (06:05)
--- NOTE | 2017-02-23 06:11 | NUR ---
Admission note Admission assessment and screening completed.
[2017-02-23 06:16] LABS: INR 0.92 ratio
[2017-02-23] MEDS: Lactated Ringer's 1,000 ML IV SCH ×2 (06:38→16:01)
--- NOTE | 2017-02-23 06:46 | NUR ---
Arrival Patient arrived to room 3012 at 0610. Alert and oriented. Awaiting full admit orders. IV fluids infusing, telemetry connected. Oriented to room, call light, policies, intentional rounding.
--- NOTE | 2017-02-23 08:55 | NUR ---
Social Work: Screening Data: Pt is a 26 y/o female admitted for upper GI bleed, anemia. Pt's PCP is Dr Barrera, pt's insurance is [employer]. EMR reviewed. Readmit score not listed. Pt is a readmit within the last month. No d/c planning needs anticipated at this time. NURSE OBGYN will continue to follow if needs arise. Assessment: Pt who is independent at baseline. Plan: Pt will d/c home via POV when medically stable. No d/c planning needs anticipated at this time. NURSE OBGYN will continue to follow if needs arise. [place] Haro
[2017-02-23 09:09] LABS: APPEARANCE,URINE CLEAR (CLEAR,HAZY); COLOR,URINE STRAW (YELLOW); OCCULT BLOOD,URINE TRACE (NEGATIVE); UROBILINOGEN,URINE NORMAL (NORMAL)
[2017-02-23] MEDS ORDERED: Ondansetron 8 mg ODT Tablet PO PRN (09:15)
[2017-02-23] MEDS ORDERED: Thiamine Inj 100 MG, Folic Acid Inj 1 MG, Magnesium Sulfate 50% Inj 2 GM, Multivitamins... IV ONE ×5 (09:15)
[2017-02-23] MEDS: Pantoprazole 4 mg/mL 10 mL Inj IVPUSH SCH ×2 (11:22→21:14)
--- NOTE | 2017-02-23 11:37 | HP ---
[address] [address] HISTORY AND PHYSICAL AND DISCHARGE SUMMARY PATIENT: NACHO VILLAGRAN : 1990 MR#: [id number] ADMIT: 02/23/2017 JOB ID: [id number] CHIEF COMPLAINT: Nausea and vomiting and vomited blood. HISTORY OF PRESENTING ILLNESS: This is a 26-year-old 6, para 1-0-4-1 with expected date of delivery of September 05, 2017 based on eight week ultrasound. The patient is 12 weeks and 2 days gestation today. The patient presented to the ED last night with a history of nausea and vomiting for one week after the patient ran out of the previous prescription of Phenergan and Zofran that she was prescribed after an admission on January 27, 2017 with hyperemesis gravidarum. During previous admission, the patient did report a history of some streaks of blood in the vomit and impression at admission was of Ilsa-Jimenez tear. After discharge, the patient did well and her symptoms were well controlled with the medications. Nausea and vomiting worsened for the last week and last night she was able to have a meal of algerian fries and sweet tea. Then she vomited a large amount of vomit followed by a cupful of blood. The patient denies history of any blood in stool. No black stool. No fever. No abdominal pain at this time. In the ED the patient was started on proton pump inhibitor and was given Zofran and dexamethasone. At time of my evaluation, the patient reports feeling much better and she does have an appetite and desires to eat. She denies any nausea or vomiting at this time. No abdominal pain. No more vomiting since her presentation to the ED. No vaginal bleeding or lower abdominal pain. Note: patient is poor historian. PAST OBSTETRIC HISTORY: 1. First 2005 was a spontaneous at four weeks gestation with no D and C. 2. Second was 2007, a spontaneous at four weeks gestation with no D and C. 3. Third is 2008, a spontaneous vaginal delivery at term. Had epidural for pain control with no complications. 4. Fourth was 2011 or 2012, was an elective termination of with D and C. 5. Fifth was November 2016, a spontaneous at around five weeks with no D and C. 6. Sixth is current . PAST GYNECOLOGIC HISTORY: The patient reports a history of abnormal Pap smear in the past. Last Pap smear was within normal limits. She reports history of herpes simplex infection. PAST MEDICAL HISTORY: 1. Chronic migraines headaches. 2. Chronic right side sharp pains, intermittent. 3. Chronic joint pain. PAST SURGICAL HISTORY: 1. Left knee surgery. 2. Cholecystectomy. 3. Molar teeth extraction. SOCIAL HISTORY: Denies alcohol use. Quit smoking but she is exposed to second hand smoking, occasional marijuana use. Denies other illicit drug abuse. The patient did give a history of a drug abuse to other health care provider earlier today but she denied drug abuse besides marijuana at this time. The patient agreed for urine drug screening today. MEDICATIONS: The patient stopped taking vitamins secondary to the nausea and vomiting. Her symptoms were controlled with Zofran and Phenergan until she ran out of medication. FAMILY HISTORY: Mother has dyslipidemia, pre diabetic, chronic back pain and multiple back surgeries, cervical cancer, history of carpal tunnel syndrome. Father's history is unknown. Brother with history of addiction to drugs. History of breast cancer great maternal aunt and a paternal aunt. History of pancreatic cancer great maternal aunt. History of lung cancer paternal aunt. Family history of leukemia second-degree relative. ALLERGIES: No known drug allergies. PHYSICAL EXAMINATION: Vital signs: Temperature 36.7, pulse 107, respiratory rate 18, blood pressure 114/76, pulse oximetry 99% on room air. General: Alert, oriented to time, place and person. Head: Normocephalic, atraumatic. Neck: Supple. Chest: Equal air entry bilaterally. No added sound. Cardiovascular: Regular rate and rhythm. S1 +, S2 + 0. Abdomen: Soft and no tenderness. No guarding. Lower extremities: Positive pulse bilaterally. No edema. heart tones: positive by Doppler 140's LABORATORIES: White blood cells 14, repeat four hours later 11.4. Hemoglobin 14.3, repeat four hours later 10.9, repeat three hours later is 12.1. Hematocrit 40%, repeat in four hours 32.1%, repeat in three hours later 35.5%. Platelets 270, repeat four hours later 162. Sodium 137, creatinine 0.41, bicarbonate 17, magnesium 1.7. AST 25, ALT 16, lipase 25. Alkaline phosphatase 76. Urine was collected after the patient was hydrated. The urine was otherwise clear. Specific gravity was 1.007. Protein negative, glucose negative, ketones 40, blood trace, nitrite negative, leukocyte esterase small, red blood cells 0-2, white blood cells 0-5, epithelial cells moderate. Crystals, none seen. Urine bacteria moderate and culture reflects as indicated. Coagulation profile: PT 9.8, INR 0.92, PTT 24.2. ASSESSMENT: This is a 26-year-old 6, para 1-0-4-1 at 12 weeks and 2 days presented with nausea and vomiting in a and hematemesis, one episode, with a past history of some streaks of blood with vomiting three weeks ago. Possible Ilsa-Jimenez tear. Currently the patient appears stable with no more nausea and vomiting and appetite to eat. PLAN: Patient care was discussed with Dr. Garcia, GI, who agrees to advance patient diet to clear liquid with no red liquids and observe for tolerance. If patient continues to be stable without other incidence of hematemesis, then endoscopy will be deferred. We will continue on proton pump inhibitors and promethazine and Zofran for the nausea and vomiting. Plan of care was discussed with the patient. Will reassess later in the day for tolerance to advanced diet if GI, Dr. Garcia, agrees to advancing diet. Will continue H and H monitoring and will repeat a basic metabolic panel. The patient was encouraged to keep followup with her primary [employer] doctor, Netta Hoguh, at [place] after discharge and to make sure she has enough refill medication for the nausea and vomiting. Nausea and vomiting in expected to worsen for the coming month or month and a half before it starts to improve. The patient confirmed understanding and agreeable to the plan. Later in the day 02/23/17 patient was evaluated by , see consult note. Patient diet was advanced and patient tolerated orally. Repeat Labs including BMP and H/H, stable and WNL (hgb 12.5). UDS negative except for cannabis. Patient requested discharge tonight as she has her daughter's birthday part tomorrow. Script given for: Pyridoxin, Doxylamine, Promethazine, Zofran and Protonix. Patient was instructed to call her provider office on Saturday for follow up visit in 1 week. consult is very appreciated. DISCHARGE DIAGNOSIS: 1. Hyperemesis gravidarum, controlled with medications. 2. Hematemesis, resolved, most likely secondary to Ilsa-Jimenez tear. DISCHARGE CONDITION: Stable. DISPOSITION: home. Diet Discharge Diet: Other (See diet instruction handout provided. ) Activity Discharge Activity-General: Other (No lifting more than 10-15 lb ) Follow Up Plan Follow-up Provider (F9): Netta Hough MD Follow-up appointment: Weeks (one) Call your provider for: Fever or Chills, Shortness of breath, Heavy bleeding, Epigastric pain, Other (Voimiting blood or blood in stool or nausea and voimiting not controlled with medications. ) MTDD
--- NOTE | 2017-02-23 13:43 | CONS ---
[address] [address] CONSULTATION REPORT PATIENT: NACHO VILLAGRAN : 1990 MR#: [id number] ADMIT: 02/23/2017 JOB ID: [id number] DATE OF SERVICE: 02/23/2017 REQUESTING PROVIDER: Milo Gandhi. REASON FOR CONSULTATION: Hematemesis. HISTORY OF PRESENT ILLNESS: This is a 26-year-old female, who is approximately 12 weeks . The patient has been struggling with increased nausea, vomiting, particularly in the mornings since about three weeks . This was all kicked off at three weeks with a [employer] meal, including a Big Mac. She was recently hospitalized here back earlier this month for hyperemesis gravidarum. She was discharged on sublingual Zofran plus p.r.n. Phenergan. She was treated for urinary tract infection. She did fine for two weeks while using the Zofran. The script lapsed, and over the last week or so, she has had recurrent nausea and clipping marker vomiting. No blood. Yesterday, she reports seeing approximately one cup of dark red blood x1. She came into the emergency department for further evaluation. She was found to have had a drop in hemoglobin from 14.3 at admission (likely quite hemoconcentrated down to 10.9 by 3:30 this morning. She was brought in for evaluation, but at present, has not had any further nausea or emesis and symptoms are currently nicely controlled. She has tolerated clear liquid diet. There has been no report of any black tarry stools. The patient has not had any associated abdominal distention or abdominal pain apart from the discomfort that is created while she is actually vomiting. ALLERGIES: No known drug allergies. MEDICATIONS: The patient was takin. Promethazine p.r.n. 2. Regular sublingual Zofran up until about a week ago. 3. The patient was given a script for Keflex at her discharge in January. 4. She is recorded as taking baclofen and methocarbamol. 5. Fioricet. 6. Ibuprofen. 7. Meloxicam. The patient denies taking any of these medications. She has certainly not had any of them in the last week. She states that her picc nurse started her on some ranitidine low dose, more recently. Here in the hospital, the patient was commenced on a PPI drip and has been treated with IV fluids. She was given Zofran, thiamine, folic acid, magnesium, multivitamin, and a dose of dexamethasone. PAST MEDICAL HISTORY: Chronic pain, headaches, a recent miscarriage back in October after she was diagnosed with Strep throat. . PAST SURGICAL HISTORY: Cholecystectomy, knee surgery x2. FAMILY HISTORY: Noncontributory. SOCIAL HISTORY: The patient previously smoked cigarettes and took alcohol. She denies any tobacco or alcohol use during . She does regularly smoke cannabis and states that this actually helps with her nausea and vomiting of . She has cut down quite a bit in terms of the amount of cannabis smoked. She reports that her mom smoked cannabis while with her. She has a lot of stress at home. She is trying to move out of her apartment with her children. She has a very suboptimal diet and again ate some [employer] yesterday to set everything back off again. Her boyfriend works at [employer] and often brings her food home at night. She reports that at the end of the month, food is usually a little harder to come by and she does not eat as well during that time frame. REVIEW OF SYSTEMS: The patient has been afebrile here in the hospital. She was treated for her urinary tract infection and finished the antibiotics two weeks after her last discharge. The patient reports that she has a chronic cough that is often brought about by the smoking of the cannabis. Sometimes this is quite forceful. We talked about this in terms of how it can sometimes be a trigger for a Ilsa-Jimenez tear. No report of any GI bleeding. The patient denies any constipation. Bowels are actually fairly regular and can be of variable consistency depending on her diet. Dickinson[employer] does not usually translate into a normal formed stool (loose). She gets headaches quite frequently but is not using any nonsteroidal anti-inflammatories. She does has noticed some increased heartburn-type symptoms since being . Being on the ranitidine, however, did not stop the nausea and vomiting. The only thing that has worked for her in her experience has been the Zofran. Otherwise, her review is as above. The patient reports that she had her gallbladder out when she was around 15 or 16 for symptoms of intermittent upper abdominal pain that would radiate up into her chest. With taking the gallbladder out, her symptoms did not resolve and she still occasionally gets this but of great interest currently, she has noted that she does not have any of these symptoms while she is . PHYSICAL EXAMINATION: The patient is alert, oriented, appropriate, cooperative, conversational, in no distress but she was using a damp cloth on her forehead and preferred to be in the dark in terms of reducing headache symptoms. She has multiple tattoos and piercings. Lungs demonstrated slightly diminished breath sounds bilaterally consistent with her smoking history. No significant extra sounds. Heart was regular. No significant peripheral pitting edema. Abdomen was soft, with increased stored adipose tissue. I did not appreciate any upper abdominal tenderness at all. Sclerae were anicteric. LABORATORY DATA: White count slightly elevated at 14.0 on admission, platelets 270. Hematocrit 40.8. With some hydration, white count has dropped to 11.4. Hematocrit is down to 32.1, platelets 162. At 6:45 this morning, hemoglobin is back up to 12.1, hematocrit 35.5. INR was 0.92. Liver tests were normal. Lipase normal. She had a slight anion gap acidosis with bicarb of 17, BUN 4, creatinine 0.41. Sodium 137, potassium 3.6, chloride 99. Urinalysis that did not demonstrate any recurrence of UTI. ASSESSMENT AND RECOMMENDATIONS: This is a 26-year-old female with a recurrence of hematemesis. The last time this occurred was back in early January. She strongly denies any nonsteroidal anti-inflammatory therapy and I think the possibility of peptic ulcer disease to be quite unlikely. The most likely explanation remains to be the Ilsa-Jimenez tear. Usually these spontaneously heal all on their own when the culprit etiology (i.e. recurrent nausea, vomiting or forceful coughing) are removed. The patient appears to be clinically quite stable at the moment and has tolerated clear liquids without any recurrence of nausea or vomiting. She is very hungry and hopes to advance the diet. I think that would be just fine and agree with reducing her proton pump inhibitor back down to intervally dosed therapy while in-house. At discharge, I would leave it to the discretion of her attending picc nurse as to how to proceed, whether she maintains Protonix use or drops down to ranitidine or simply uses as-needed interval therapy. It sounds like she is going to probably have persistent nausea and vomiting throughout the middle portion of her consistent with a hyperemesis gravidarum and again would defer to her picc nurse as to how to proceed. It sounds like she has had an appropriate clinical response to the sublingual Zofran. I discussed with the patient the prospect of a diagnostic upper endoscopy but explained that this would involve use of anesthetic medications. I think that we should reserve such a procedure for an emergency only, especially in that she is clinically quite a bit improved overnight. I have advanced her diet. I will continue to follow while in-house. Please contact me at [phone] if there are any concerning clinical changes. The patient has a birthday democrat plan for her daughter tomorrow and is quite motivated to be discharged from the hospital today. I would leave that to the discretion of her primary service. I additionally recommended the patient pay much more attention to her nutrition and not let this lapse. She seems to do worse when profoundly hungry. I additionally advised against consuming any food from the likes of [employer]. Note: This physician note is a no-charge visit. Please do not submit charges for this particular note today. MCKENZIE
--- NOTE | 2017-02-23 16:51 | NUR ---
Pt wants to leave Message sent to NICOLE, pt insisting she is feeling better, "I know my body, I'm fine to go home now". Pt denies pain and nausea. Tolerated lunch well. Will continue to monitor. Addendum: 02/23/17 at 1803 by SHELLI DANG RN called back, will d/c pt this evening. Pt made aware.
[2017-02-23] MEDS ORDERED: PANT40TA2 PO (20:13)
[2017-02-23] MEDS ORDERED: PROM25TA14 PO (20:16)
[2017-02-23] MEDS ORDERED: ONDA4TAB12 PO (20:16)
[2017-02-23] MEDS ORDERED: PYRI25LO2 PO (20:17)
[2017-02-23] MEDS ORDERED: DOXY25TA46 PO (20:17)
--- NOTE | 2017-02-23 20:21 | PCM.DIOB ---
Obstetrical Disch Instruction Date of Service: Feb 23, 2017 Dates of Hospitalization Date of Hospital Admission Feb 23, 2017 at 05:27 Providers Admitting Physician: Mary Wei DO Primary Care Physician: Manisha Barrera Attending Physician: Mary Wei DO Discharge Diagnosis Problems: (1) Ilsa-Jimenez tear Status: Acute ICD Code: K22.6 (2) Hyperemesis gravidarum Status: Acute ICD Code: O21.0 Diet Discharge Diet: Other (See diet instruction handout provided. ) Activity Discharge Activity-General: Other (No lifting more than 10-15 lb ) Follow Up Plan Follow-up Provider (F9): Netta Hough MD Follow-up appointment: Weeks (one) Call your provider for: Fever or Chills, Shortness of breath, Heavy bleeding, Epigastric pain, Other (Voimiting blood or blood in stool or nausea and voimiting not controlled with medications. ) Gonzalo Luong MD Feb 23, 2017 20:21
[2017-02-23] MEDS ORDERED: Pantoprazole 4 mg/mL 10 mL Inj IVPUSH SCH (20:30)
--- NOTE | 2017-02-23 21:21 | NUR ---
Discharge Patient was discharged at 2109. Discharge instructions explained, prescriptions provided, IV and telemetry removed. Patient walked to family car at the front of building.
--- NOTE | 2017-02-28 12:41 | PCM.DC.OB ---
Obstetrical Discharge Summary Date of Service Feb 28, 2017 Date of hospital admission Feb 23, 2017 at 05:27 Date of Discharge: Feb 23, 2017 Providers Admitting Physician: Mary Wei DO Primary Care Physician: Manisha Barrera Attending Physician: Ashleigh Luong MD Diagnosis at Time of Discharge DISCHARGE DIAGNOSIS: 1. Hyperemesis gravidarum, controlled with medications. 2. Hematemesis, resolved, most likely secondary to Ilsa-Jimenez tear. DISCHARGE CONDITION: Stable. DISPOSITION: home. Problems: (1) Ilsa-Jimenez tear Status: Acute ICD Code: K22.6 (2) Hyperemesis gravidarum Status: Acute ICD Code: O21.0 Hospital Course: CHIEF COMPLAINT: Nausea and vomiting and vomited blood. HISTORY OF PRESENTING ILLNESS: This is a 26-year-old 6, para 1-0-4-1 with expected date of delivery of September 05, 2017 based on eight week ultrasound. The patient is 12 weeks and 2 days gestation today. The patient presented to the ED last night with a history of nausea and vomiting for one week after the patient ran out of the previous prescription of Phenergan and Zofran that she was prescribed after an admission on January 27, 2017 with hyperemesis gravidarum. During previous admission, the patient did report a history of some streaks of blood in the vomit and impression at admission was of Ilsa-Jimenez tear. After discharge, the patient did well and her symptoms were well controlled with the medications. Nausea and vomiting worsened for the last week and last night she was able to have a meal of armenian fries and sweet tea. Then she vomited a large amount of vomit followed by a cupful of blood. The patient denies history of any blood in stool. No black stool. No fever. No abdominal pain at this time. In the ED the patient was started on proton pump inhibitor and was given Zofran and dexamethasone. At time of my evaluation, the patient reports feeling much better and she does have an appetite and desires to eat. She denies any nausea or vomiting at this time. No abdominal pain. No more vomiting since her presentation to the ED. No vaginal bleeding or lower abdominal pain. Note: patient is poor historian. PAST OBSTETRIC HISTORY: 1. First 2005 was a spontaneous at four weeks gestation with no D and C. 2. Second was 2007, a spontaneous at four weeks gestation with no D and C. 3. Third is 2008, a spontaneous vaginal delivery at term. Had epidural for pain control with no complications. 4. Fourth was 2011 or 2012, was an elective termination of with D and C. 5. Fifth was November 2016, a spontaneous at around five weeks with no D and C. 6. Sixth is current . PAST GYNECOLOGIC HISTORY: The patient reports a history of abnormal Pap smear in the past. Last Pap smear was within normal limits. She reports history of herpes simplex infection. PAST MEDICAL HISTORY: 1. Chronic migraines headaches. 2. Chronic right side sharp pains, intermittent. 3. Chronic joint pain. PAST SURGICAL HISTORY: 1. Left knee surgery. 2. Cholecystectomy. 3. Molar teeth extraction. SOCIAL HISTORY: Denies alcohol use. Quit smoking but she is exposed to second hand smoking, occasional marijuana use. Denies other illicit drug abuse. The patient did give a history of a drug abuse to other health care provider earlier today but she denied drug abuse besides marijuana at this time. The patient agreed for urine drug screening today. MEDICATIONS: The patient stopped taking vitamins secondary to the nausea and vomiting. Her symptoms were controlled with Zofran and Phenergan until she ran out of medication. FAMILY HISTORY: Mother has dyslipidemia, pre diabetic, chronic back pain and multiple back surgeries, cervical cancer, history of carpal tunnel syndrome. Father's history is unknown. Brother with history of addiction to drugs. History of breast cancer great maternal aunt and a paternal aunt. History of pancreatic cancer great maternal aunt. History of lung cancer paternal aunt. Family history of leukemia second-degree relative. ALLERGIES: No known drug allergies. PHYSICAL EXAMINATION: Vital signs: Temperature 36.7, pulse 107, respiratory rate 18, blood pressure 114/76, pulse oximetry 99% on room air. General: Alert, oriented to time, place and person. Head: Normocephalic, atraumatic. Neck: Supple. Chest: Equal air entry bilaterally. No added sound. Cardiovascular: Regular rate and rhythm. S1 +, S2 + 0. Abdomen: Soft and no tenderness. No guarding. Lower extremities: Positive pulse bilaterally. No edema. heart tones: positive by Doppler 140's LABORATORIES: White blood cells 14, repeat four hours later 11.4. Hemoglobin 14.3, repeat four hours later 10.9, repeat three hours later is 12.1. Hematocrit 40%, repeat in four hours 32.1%, repeat in three hours later 35.5%. Platelets 270, repeat four hours later 162. Sodium 137, creatinine 0.41, bicarbonate 17, magnesium 1.7. AST 25, ALT 16, lipase 25. Alkaline phosphatase 76. Urine was collected after the patient was hydrated. The urine was otherwise clear. Specific gravity was 1.007. Protein negative, glucose negative, ketones 40, blood trace, nitrite negative, leukocyte esterase small, red blood cells 0-2, white blood cells 0-5, epithelial cells moderate. Crystals, none seen. Urine bacteria moderate and culture reflects as indicated. Coagulation profile: PT 9.8, INR 0.92, PTT 24.2. ASSESSMENT and PLAN: This is a 26-year-old 6, para 1-0-4-1 at 12 weeks and 2 days presented with nausea and vomiting in a and hematemesis, one episode, with a past history of some streaks of blood with vomiting three weeks ago. Possible Ilsa-Jimenez tear. Currently the patient appears stable with no more nausea and vomiting and appetite to eat. Later in the day 02/23/17 patient was evaluated by , see consult note and admission H&P. Patient diet was advanced and patient tolerated orally. Repeat Labs including BMP and H/H, stable and WNL (hgb 12.5). UDS negative except for cannabis. Patient requested discharge tonight as she has her daughter's birthday part tomorrow. Script given for: Pyridoxin, Doxylamine, Promethazine, Zofran and Protonix. Patient was instructed to call her provider office on Saturday for follow up visit in 1 week. consult is very appreciated. Doxylamine Succinate (Unisom) 25 Mg Tablet 12.5 MG PO Every 6 hours Prescribed by: ASHLEIGH LUONG MD Ondansetron ODT (Ondansetron ODT) 4 Mg Tab.rapdis 4 MG PO Q4H Prescribed by: ASHLEIGH LUONG MD Pantoprazole DR (Protonix) 40 Mg Tablet 40 MG PO BID Prescribed by: ASHLEIGH LUONG MD Promethazine (Promethazine) 25 Mg Tablet 25 MG PO Q4H PRN PRN For Nausea Prescribed by: ASHLEIGH LUONG MD Pyridoxine HCl (B-Brendan) 25 Mg Lozenge 25 MG PO every 6 hours Prescribed by: ASHLEIGH LUONG MD Discontinued Medications Baclofen (Baclofen) 10 Mg Tablet 10 MG PO QID Prescribed by: PROSPER BARILLAS Butalbital/Acetamin/Caff 50-300-40 mg (Fioricet 50-300-40 mg) 1 Each Capsule 1 CAPSULE PO Q4H PRN PRN Headache Prescribed by: HEVER QUIROGA Cephalexin (Keflex) 500 Mg Capsule 500 MG PO Q6H Prescribed by: JUAN CARLOS MIR MD Ibuprofen (Ibuprofen) 800 Mg Tablet 800 MG PO TID PRN PRN For Pain Prescribed by: PROPSER BARILLAS Meloxicam (Meloxicam) 7.5 Mg Tablet 7.5 MG PO DAILY Prescribed by: HEVER QUIROGA Methocarbamol (Methocarbamol) 500 Mg Tablet 1,000 MG PO TID Prescribed by: HEVER QUIROGA Ranitidine HCl (Acid Generation Engineer) 75 Mg Tablet 75 MG PO DAILY Prescribed by: HEVER QUIROGA Patient instructions Diet Discharge Diet: Other (See diet instruction handout provided. ) Activity Discharge Activity-General: Other (No lifting more than 10-15 lb ) Follow Up Plan Follow-up Provider (F9): Netta Hough MD Follow-up appointment: Weeks (one) Call your provider for: Fever or Chills, Shortness of breath, Heavy bleeding, Epigastric pain, Other (Voimiting blood or blood in stool or nausea and voimiting not controlled with medications. ) Ashleigh Luong MD Feb 28, 2017 12:41
== END 2017-02-23 21:17 | disposition home or self-care (01) ==
LOC: SED 22:47 → MPC 02-23 05:27
PROVIDERS: ADMIT Internal Medicine; ATTEND Obstetrics & Gynecology
DX: O21.0 Mild hyperemesis gravidarum (principal); Z3A.12 12 weeks gestation of pregnancy; K92.0 Hematemesis